=== PATIENT | male | born 1950 | race Caucasian/White ===

== ENCOUNTER → 2016-12-14 | Outpatient (CLI) | payer OTHER ==
[~2016-12-14] MED LIST: ASPI81TA28 PO; CARV3.122 PO; CLR10 PO; DIPH-416 PO; FLUT0.15 NAE; HYDR25TA4 PO; LOSA1TAB38 PO; LPT40 PO; MULT-506 PO; NTRGSL4 PO; PLV75 PO; PRLSR20 PO; SERT50TA PO
--- NOTE | 2016-12-15 00:12 | MYOCARDIAL PERFUSION SCAN ---
STUDY REQUESTED BY: Dr. Rob Vickers. PRIMARY CARE PHYSICIAN: Dr. Khanh Daniel. ONE-DAY NUCLEAR MEDICINE TECHNETIUM-99M CARDIOLITE MYOCARDIAL PERFUSION SCAN INDICATION: History of coronary artery disease, status post prior PCI to circumflex, recurrent atypical chest pain. STRESS EKG: Baseline EKG showed sinus rhythm with a right bundle-branch block, ventricular rate of 64. The patient exercised 6 minutes and 55 seconds, achieving 9.7 METs and a peak heart rate of 129 beats per minute, representing 84% of his maximum predicted heart rate. His blood pressure rodríguez from 110/78 to 158/88. With stress, he had approximately [address] horizontal depression in leads V3 and V4, which quickly resolved less than 1 minute into recovery. He also had borderline [address] upsloping elevations in II and aVF, again which resolved quickly within less than 1 minute of recovery. TECHNIQUE: For the stress portion of the study, 32.4 mCi of technetium-99m Cardiolite IV was injected at 11:43 a.m. on 12/14/2016. Fifteen minutes following the injection, imaging of the heart was performed in multiple projections. For the rest portion of the study, 10.7 mCi of technetium-99m Cardiolite was injected IV at 9:40 a.m. One hour following the injection, imaging of the heart was performed in the same projections. FINDINGS: Raw images were reviewed in detail. There was questionable diaphragmatic attenuation. There was minimal GI uptake which appeared at the inferior borders of the heart. There was no significant extra cardiac pathologic uptake. Short axis, horizontal long axis, and vertical long axis images were reviewed in detail. There was a small mild reversible perfusion defect involving the apical lateral wall, sum difference score of 2, no other significant perfusion defects. LV size was normal with an end-diastolic volume of 71 mL. EF was normal with an ejection fraction of 64% and no regional wall motion abnormalities. IMPRESSION: 1. Small mild reversible apical lateral perfusion defect consistent with possible distal LAD, diagonal disease. 2. Normal left ventricular size and function, EF 64% with no regional wall motion abnormalities. 3. Positive exercise stress EKG with up to [address] depression anteriorly quickly resolving in recovery. 4. Above average functional capacity, exercised 6 minutes and 53 seconds, achieving 9.7 METs. Normal hemodynamic response to exercise. No exercise-induced chest pain. 5. Overall, in this patient with known coronary artery disease, findings of minimal distal residual ischemia and above average functional capacity suggest a relatively low risk for future adverse cardiac events. MTDD
== END | disposition home or self-care (01) ==
LOC: C.NUCL 09:03
PROVIDERS: ATTEND Internal Medicine Interventional Cardiology
DX: R07.89 Other chest pain (principal)

== ENCOUNTER → 2017-02-22 | Outpatient (CLI) | payer OTHER ==
[2017-02-22 14:45] LABS: BASO ABS # 0.04 K/uL (0-0.2); COMPLETE YES; EOS % 3.4 %; HEMATOCRIT 41.8 % (42-52); LYMPH % 36.4 %; MEAN CELL VOLUME 91.9 fL (80-100); MEAN CORPUSCULAR HEMOGLOBIN 32.3 pg (25-34); MEAN CORPUSCULAR HGB CONC 35.2 g/dl (32-36); MEAN PLATELET VOLUME 10.2 fL (7.4-10.4); MONO % 12.5 %; NEUT % 46.7 %; PLATELET COUNT 153 K/uL (130-400); RED BLOOD COUNT 4.55 M/uL (4.7-6.1); WHITE BLOOD COUNT 3.85 K/uL (4.8-10.8)
[2017-02-22 15:01] LABS: ALT/SGPT 46 U/L (12-78); AST/SGOT 24 U/L (15-37); BLOOD UREA NITROGEN 13 mg/dl (7-18); BUN/CREATININE RATIO 11.6 (10-20); CALCIUM 9.6 mg/dl (8.5-10.1); CARBON DIOXIDE 31 mmol/L (21-32); CHLORIDE 106 mmol/L (98-107); CHOLESTEROL 148 mg/dl (0-200); CHOLESTEROL/HDL RATIO 3.1; GLUCOSE 138 mg/dl (70-99); HDL CHOLESTEROL 47 mg/dl; LDL CHOLESTEROL CALCULATED 68 mg/dl; SODIUM 143 mmol/L (136-145); TRIGLYCERIDES 167 mg/dl (0-150); VERY LOW DENSITY LIPOPROT CALC 33 mg/dl
[2017-02-22 15:06] LABS: ALB/GLOB RATIO 1.2 (0.9-2); ALKALINE PHOSPHATASE 50 U/L (45-117); FERRITIN 682.5 ng/ml (8.0-388.0); TOTAL IRON BINDING CAPACITY 305 mcg/dl (250-450)
== END | disposition home or self-care (01) ==
LOC: C.LABBC 10:21
PROVIDERS: ATTEND Family Medicine
DX: I10 Essential (primary) hypertension (principal); E11.9 Type 2 diabetes mellitus without complications; E78.5 Hyperlipidemia, unspecified; D64.9 Anemia, unspecified